=== PATIENT | female | born 1965 | race Caucasian/White ===

== ENCOUNTER 2020-03-21 08:13 | Outpatient (CLI) | payer MEDICAID ==
[2020-03-21] MEDS ORDERED: IOVERSOL 320 50 ML VIAL ONE (08:25)
[2020-03-21] MEDS ORDERED: IOVERSOL 320 100 ML VIAL IVP ONE ×2 (08:25→10:11)
[2020-03-21] MEDS ORDERED: IOVERSOL 320 50 ML VIAL PO ONE (10:11)
--- NOTE | 2020-03-21 10:45 | CT Report ---
PROCEDURE: Abdomen/Pelvis W INDICATIONS: ABD PAIN CONTRAST: IV CONTRAST: Optiray 320 ml: 100 PO CONTRAST: *NO PO CONTRAST TECHNIQUE: After the administration of IV and oral contrast, 5 mm thick sections acquired from the diaphragms to the symphysis. 5 mm thick coronal and sagittal reformats were acquired. For radiation dose reducti on, the following was used: automated exposure control, adjustment of mA and/or kV according to richi ent size. COMPARISON: None. FINDINGS: Image quality: Excellent. ABDOMEN: Lung bases: Lung bases are clear. Heart size is normal. Solid organs: Mild hepatomegaly and mild steatosis. Spleen is normal in size and enhancement. Gallbl adder is unremarkable Biliary system is non dilated. Pancreas enhances normally. No adrenal nodule s. Kidneys demonstrate normal size and enhancement, without hydronephrosis. Small cyst arising from the lower pole of the left kidney Peritoneum and bowel: Bowel loops demonstrate normal wall thickness and caliber. Normal appendix. N o free fluid or air. Nodes and vessels: No retroperitoneal or mesenteric adenopathy by size criteria. Aorta and inferior vena cava are normal in size. Miscellaneous: No ventral hernias. PELVIS: Genitourinary: Bladder wall thickness is normal. The uterus is normal. No suspicious adnexal masses . Miscellaneous: No inguinal hernias or adenopathy. Bones: No suspicious bony lesions. Pars defects at L5 result in disc height loss and grade 1-2 ante rolisthesis. No vertebral body compression fractures. IMPRESSION: 1. No evidence of ventral or inguinal hernia. 2. Mild hepatomegaly and steatosis. 3. L5 pars defects and resultant spondylolisthesis. Reviewed by: Leeanne Arce MD on 03/21/2020 10:43 AM PST Approved by: Leeanne Arce MD on 03/21/2020 10:43 AM PST Station ID: [id number]
== END 2020-03-21 08:14 | disposition home or self-care (01) ==
LOC: DI 08:13
PROVIDERS: ATTEND Family Medicine
DX: R10.9 Unspecified abdominal pain (principal); K76.0 Fatty (change of) liver, not elsewhere classified; M43.16 Spondylolisthesis, lumbar region; N64.4 Mastodynia
CPT/HCPCS: 74177; Q9967

== ENCOUNTER 2020-04-07 08:30 | Outpatient (CLI) | payer MEDICAID ==
--- NOTE | 2020-04-08 09:53 | Mammography Report ---
BILATERAL DIGITAL DIAGNOSTIC MAMMOGRAM 3D/2D: 04/07/2020 CLINICAL: Intermitten pain in bilateral breasts. No prior exams were available for comparison. There are scattered fibroglandular elements in both br easts. No significant masses, calcifications, or other findings are seen in either breast. IMPRESSION: NEGATIVE There is no abnormality seen in either breast to correspond with the diffuse pain in the outer aspect , however, clinical correlation is recommended. There is no mammographic evidence of malignancy. A 1 year screening mammogram is recommended. This exam was interpreted at Station ID: [id number]. NOTE: For mammograms, a report in lay terms will be sent to the patient. Approximately 15% of breast malignancies will not be visualized mammographically. In the management of a palpable breast mass, a negative mammogram must not discourage biopsy of a clinically suspicious lesion. Electronically Signed By: Mateo acharya/chika:04/07/2020 09:13:20 ACR BI-RADS Category 1: Negative 3341F PARENCHYMAL PATTERN: (A) - The breast(s) demonstrate(s) scattered fibroglandular densities. BI-RADS CATEGORY: (1) - 1 RECOMMENDATION: (ANNUAL) - Recommend routine annual screening mammography. [id number] 1 year screening LATERALITY: (B)
== END 2020-04-07 08:31 | disposition home or self-care (01) ==
LOC: DI 08:30
PROVIDERS: ATTEND Family Medicine
DX: N64.4 Mastodynia (principal); Z80.3 Family history of malignant neoplasm of breast

== ENCOUNTER 2020-04-20 11:57 | Outpatient (CLI) | payer MEDICAID ==
--- NOTE | 2020-04-20 14:05 | XRAY Report ---
PROCEDURE: Pelvis 1 View INDICATIONS: HIP PAIN,RIGHT TECHNIQUE: 1 view(s) of the pelvis acquired. COMPARISON: None. FINDINGS: Bones: No fractures or dislocations. No suspicious bony lesions. Mild periarticular osteophyte for mation at the bilateral hip joints. Soft tissues: Visualized bowel gas pattern is normal. No suspicious soft tissue calcifications. IMPRESSION: Mild hip osteoarthritis bilaterally. No acute fracture. No osseous lesion. If symptoms a nd/or clinical suspicion for pathology continue, further assessment with repeat plain films, or advan magy imaging (e.g., CT, MRI, or bone scan) is recommended for further assessment. Reviewed by: Benton Alamo MD on 04/20/2020 2:03 PM PST Approved by: Benton Alamo MD on 04/20/2020 2:03 PM PST Station ID: [id number]
== END 2020-04-20 11:58 | disposition home or self-care (01) ==
LOC: DI 11:57
PROVIDERS: ATTEND Family Medicine
DX: M16.0 Bilateral primary osteoarthritis of hip (principal)

== ENCOUNTER 2020-05-03 08:56 | Outpatient (CLI) | payer MEDICAID ==
[2020-05-03] MEDS ORDERED: SINCALIDE 5 MCG VIAL ONE (10:20)
[2020-05-03] MEDS ORDERED: SINCALIDE 1.48 MCG in SODIUM CHLORIDE 0.9% 50 ML IV ONE (13:34)
--- NOTE | 2020-05-03 13:39 | Nuclear Medicine Report ---
PROCEDURE: Hepatobiliary HIDA w/ Rx INDICATIONS: ABD PAIN, RUQ RADIOPHARMACEUTICAL: 5.3 mCi Tc-99m meprofenin i.v. and 1.48 ?g sincalide i.v. TECHNIQUE: Following intravenous administration of Tc-99m meprofenin, sequential anterior abdominal images were obtained through 30 minutes. To evaluate the contractile response of the gallbladder in response to Cholecystokinin (CCK), 1.48 microgram sincalide (0.02 ?g/kg) was administered by slow int ravenous infusion approximately 30 minutes after the administration of the radiopharmaceutical. Sequ ential imaging was continued for 30 minutes after the start of CCK infusion. Gallbladder ejection fr action was calculated. COMPARISON: CT abdomen and pelvis with contrast, 03/21/2020.. FINDINGS: Biliary scan: There is normal tracer uptake and excretion by the liver. There is normal visualizati on of the intrahepatic ducts, common bile duct, and gallbladder. There is normal tracer transit into the duodenum. CCK stimulation: There is poor contractile response of the gallbladder to CCK infusion. The calcula luis daniel gallbladder ejection fraction is 14%; normal values are above 35%. IMPRESSION: 1. Normal filling of gallbladder. No scintigraphic findings to suggest acute cholecystitis. 2. Poor contractile response of gallbladder to CCK infusion. This finding is consistent with gallblad margarito dyskinesia. Reviewed by: Santo Birmingham MD on 05/03/2020 1:37 PM PST Approved by: Santo Birmingham MD on 05/03/2020 1:37 PM PST Station ID: [id number]
== END 2020-05-03 08:57 | disposition home or self-care (01) ==
LOC: DI 08:56
PROVIDERS: ATTEND Family Medicine
DX: R10.11 Right upper quadrant pain (principal)
CPT/HCPCS: 78227; J7040

== ENCOUNTER 2020-05-22 08:41 | Outpatient (CLI) | payer MEDICAID ==
--- NOTE | 2020-05-22 10:26 | Ultrasound Report ---
PROCEDURE: Abdomen Limited INDICATIONS: ABDOMINAL PAIN TECHNIQUE: Real-time focused scanning was performed of the abdomen, with image documentation. COMPARISON: CT abdomen and pelvis dated 03/21/2020 FINDINGS: Increased echogenicity of the liver is consistent with hepatic steatosis. Gallbladder is unremarkable. No stones or wall thickening. No pain on examination. No dilated ducts. Common hepatic duct is 4 mm. Common bile duct is 5 mm. Visualized portions of the pancreas are unremarkable. Normal size right kidney with no evidence of hydronephrosis. IMPRESSION: 1. Hepatic steatosis. 2. Otherwise unremarkable right upper quadrant ultrasound with no evidence of gallstone disease. Reviewed by: Kike Resendiz MD on 05/22/2020 9:25 AM [place] Approved by: Kike Resendiz MD on 05/22/2020 9:25 AM [place] Station ID: [id number]
== END 2020-05-22 08:42 | disposition home or self-care (01) ==
LOC: DI 08:41
PROVIDERS: ATTEND Surgery
DX: K76.0 Fatty (change of) liver, not elsewhere classified (principal)

== ENCOUNTER 2020-05-28 16:32 | Outpatient (CLI) | payer MEDICAID | END 2020-05-28 16:33 | disposition critical access hospital (66) | LOC: EMS 16:32 | PROVIDERS: ATTEND Emergency Medicine | DX: I10 Essential (primary) hypertension (principal); R07.9 Chest pain, unspecified | CPT/HCPCS: A0425; A0429; A0999 ==

== ENCOUNTER 2020-05-28 16:51 | Emergency (ER) | payer MEDICAID ==
[2020-05-28 17:09] LABS: BASOPHILS % (AUTO) 0.5 %; EOSINOPHILS % (AUTO) 0.2 %; HCT - HEMATOCRIT 39.5 % (37.0-47.0); HGB - HEMOGLOBIN 13.4 g/dL (12.0-16.0); LYMPHOCYTES # (AUTO) 1.1 10^3/uL (1.5-3.5); LYMPHOCYTES % (AUTO) 20.4 %; MEAN CORPUSCULAR HEMOGLOBIN 31.7 pg (27.0-31.0); MEAN CORPUSCULAR HGB CONC 33.9 g/dL (32.0-36.0); MEAN CORPUSCULAR VOLUME 93.4 fL (81.0-99.0); MEAN PLATELET VOLUME 9.6 fL (7.9-10.8); MONOCYTES # (AUTO) 0.2 10^3/uL (0.0-1.0); MONOCYTES % (AUTO) 3.2 %; NEUTROPHILS # (AUTO) 4.2 10^3/uL (1.5-6.6); NEUTROPHILS % (AUTO) 75.5 %; PLT - PLATELET COUNT 213 10^3/uL (130-450); RED BLOOD COUNT 4.23 10^6/uL (4.20-5.40); RED CELL DISTRIBUTION WIDTH 12.6 % (12.0-15.0); WHITE BLOOD COUNT 5.6 x10^3/uL (4.8-10.8)
--- NOTE | 2020-05-28 17:22 | ED Physician Documentation ---
History of Present Illness - Stated complaint Stated Complaint: CP - Chief complaint Chief Complaint: Cardiac - History obtained from History obtained from: Patient - History of Present Illness Timing: Today Pain level max: 0 Pain level now: 0 - Additonal information Additional information: Patient is a 55-year-old female who presents to the emergency department after being seen at the walk-in clinic earlier today. They called 911 and brought her here. She states she drank coffee today, normally drinks decaf, but this was regular coffee. Developed palpitations after this. She states that her blood pressure was higher than usual at 160 systolic. She went to the walk-in clinic and states that she was told her blood pressure was 190. They called the ambulance and brought her here. Patient denies any chest pain, difficulty breathing, nausea, vomiting, headache, visual changes. Patient is currently asymptomatic. Nothing made it better or worse Review of Systems Ten Systems: 10 systems reviewed and negative Constitutional: denies: Fever, Chills Ears: denies: Ear pain Nose: denies: Rhinorrhea / runny nose, Congestion Respiratory: denies: Cough, Wheezing GI: denies: Nausea, Vomiting, Diarrhea Skin: denies: Rash Musculoskeletal: denies: Neck pain, Back pain Neurologic: denies: Headache PD PAST MEDICAL HISTORY - Past Medical History Past Medical History: No - Present Medications Home Medications: Ambulatory Orders Medication Instructions Recorded Confirmed No Known Home Medications 05/28/20 05/28/20 - Allergies Allergies/Adverse Reactions: Allergies Allergy/AdvReac Type Severity Reaction Status Date / Time nitrofurantoin Allergy Headache Verified 05/28/20 16:56 [From Macrobid] - Social History Does the pt smoke?: No Smoking Status: Never smoker Does the pt drink ETOH?: No PD ED PE NORMAL - Vitals Vital signs reviewed: Yes - General General: Alert and oriented X 3, No acute distress - HEENT HEENT: Moist mucous membranes - Neck Neck: Supple, no meningeal sign - Cardiac Cardiac: RRR - Respiratory Respiratory: No respiratory distress, Clear bilaterally - Abdomen Abdomen: Soft, Non tender, Non distended - Derm Derm: Warm and dry, No rash - Extremities Extremities: No edema, No calf tenderness / cord - Neuro Neuro: Alert and oriented X 3 - Psych Psych: Normal mood, Normal affect Results - Vitals Vitals: Vital Signs - 24 hr 05/28/20 05/28/20 16:56 17:57 Temperature 36.4 C L Heart Rate 87 72 Respiratory 19 18 Rate Blood Pressure 158/70 H 132/89 H O2 Saturation 97 99 Oxygen O2 Source Room air - EKG (time done) 1654 Rate: Rate (enter#) (83) Rhythm: NSR [place]: Normal Intervals: Normal [place] QRS: Normal Ischemia: Normal ST segments - Labs Labs: Laboratory Tests 05/28/20 05/28/20 05/28/20 17:03 17:03 17:03 WBC 5.6 RBC 4.23 Hgb 13.4 Hct 39.5 MCV 93.4 MCH 31.7 H MCHC 33.9 RDW 12.6 Plt Count 213 MPV 9.6 Neut # (Auto) 4.2 Lymph # (Auto) 1.1 L [place] # (Auto) 0.2 Eos # (Auto) 0.0 Baso # (Auto) 0.0 Absolute Nucleated RBC 0.00 Nucleated RBC % 0.0 Sodium 141 Potassium 3.5 Chloride 99 L Carbon Dioxide 25 Anion Gap 17.0 H BUN 15 Creatinine 0.8 Estimated GFR (MDRD) 74 L Glucose 105 H Calcium 10.2 Total Bilirubin 1.3 H AST 22 ALT 20 Alkaline Phosphatase 55 Troponin I High Sens 9.9 Total Protein 7.6 Albumin 4.5 Globulin 3.1 Albumin/Globulin Ratio 1.5 Lipase 22 - Rads (name of study) cxr Radiology: Prelim report reviewed, EMP read contemporaneously, See rad report (No acute cardiopulmonary abnormality. ) PD MEDICAL DECISION MAKING - ED course Complexity details: reviewed results, re-evaluated patient, considered differential, d/w patient ED course: 55-year-old female with palpitations today. No acute findings on EKG, chest x- ray or laboratory testing. No findings on telemetry. Likely related to her caffeine intake. Patient is well-appearing, nontoxic. Afebrile. No evidence of hypertensive endorgan damage. Patient counseled regarding signs and symptoms for which I believe and urgent re-evaluation would be necessary. Patient with good understanding of and agreement to plan and is comfortable going home at this time This document was made in part using voice recognition software. While efforts are made to proofread this document, sound alike and grammatical errors may occur. Departure - Departure Disposition: Home, Self Care Clinical Impression: Palpitations Hypertension Qualifiers: Hypertension type: unspecified Qualified Code(s): I10 - Essential (primary) hypertension Condition: Good Instructions: ED Hypertension Poss, ED Palpitations Follow-Up: Edin Mcmillan DO [Primary Care Provider] - Within 1 week Comments: Follow-up with your doctor for further care. Your testing does not show any acute abnormalities tonight. Continue your current medications at home. Please avoid caffeine in the future as this appears to cause palpitations when you drink caffeine. Discharge Date/Time: 05/28/20 17:57
[2020-05-28 17:27] LABS: ALBUMIN 4.5 g/dL (3.2-5.5); ALBUMIN/GLOBULIN RATIO 1.5 (1.0-2.2); BILIRUBIN,TOTAL 1.3 mg/dL (0.2-1.0); CALCIUM 10.2 mg/dL (8.5-10.3); CREATININE 0.8 mg/dL (0.4-1.0); POTASSIUM 3.5 mmol/L (3.5-5.0); TOTAL PROTEIN 7.6 g/dL (6.7-8.2)
--- NOTE | 2020-05-28 17:35 | XRAY Report ---
PROCEDURE: Chest 1 View X-Ray INDICATIONS: Chest Pain TECHNIQUE: One view of the chest was acquired. COMPARISON: CT abdomen and pelvis 03/21/2020. FINDINGS: Surgical changes and devices: None. Lungs and pleura: No pleural effusions or pneumothorax. Lungs are clear. Mediastinum: Mediastinal contours appear normal. Heart size is normal. Bones and chest wall: No suspicious bony lesions. Overlying soft tissues appear unremarkable. IMPRESSION: No acute cardiopulmonary abnormality. Reviewed by: Morteza Ochoa MD on 05/28/2020 4:34 PM [place] Approved by: Morteza Ochoa MD on 05/28/2020 4:34 PM [place] Station ID: [id number]
[2020-05-28 17:59] VITALS: BP 132/89
== END 2020-05-28 17:57 | disposition home or self-care (01) ==
LOC: EDUNIT# → ED 16:51 → SUPCPDRO 16:51 → ED 17:57
DX: R00.2 Palpitations (principal); I10 Essential (primary) hypertension
CPT/HCPCS: 36415; 80053; 83690; 84484; 85025; 93005; 99284

== ENCOUNTER 2020-06-10 09:08 | Outpatient (CLI) | payer SELFPAY ==
--- OUTSIDE RECORDS SUMMARY | 2020-06-15 01:38 | EXTERNAL MEDICAL SUMMARY RPT | Continuity of Care Document ---
:1965 Demographics Phone Unavailable Preferred Language Unknown Marital Status Unknown Roman Catholic Affiliation Unknown Race Unknown Ethnic Group Unknown Author Organization [facility] Address [address] [place] [address] Phone Social History date description facility [phone]
== END 2020-06-10 09:09 | disposition home or self-care (01) ==
LOC: LAB 09:08
PROVIDERS: ATTEND Physician Assistant Medical
DX: Z13.6 Encounter for screening for cardiovascular disorders (principal); Z79.899 Other long term (current) drug therapy; Z80.9 Family history of malignant neoplasm, unspecified; E55.9 Vitamin D deficiency, unspecified
CPT/HCPCS: 36415; 80053; 80061; 82306; 83690; 83721; 85025

== ENCOUNTER 2020-09-01 08:00 | Outpatient (CLI) | payer MEDICAID ==
[2020-09-01 11:29] LABS: BASOPHILS % (AUTO) 0.5 %; EOSINOPHILS % (AUTO) 0.7 %; HCT - HEMATOCRIT 39.3 % (37.0-47.0); LYMPHOCYTES # (AUTO) 1.4 10^3/uL (1.5-3.5); LYMPHOCYTES % (AUTO) 24.8 %; MEAN CORPUSCULAR HEMOGLOBIN 31.2 pg (27.0-31.0); MEAN CORPUSCULAR HGB CONC 33.1 g/dL (32.0-36.0); MEAN CORPUSCULAR VOLUME 94.2 fL (81.0-99.0); MEAN PLATELET VOLUME 10.2 fL (7.9-10.8); MONOCYTES # (AUTO) 0.2 10^3/uL (0.0-1.0); NEUTROPHILS % (AUTO) 69.8 %; PLT - PLATELET COUNT 224 10^3/uL (130-450); RED BLOOD COUNT 4.17 10^6/uL (4.20-5.40); RED CELL DISTRIBUTION WIDTH 12.9 % (12.0-15.0); WHITE BLOOD COUNT 5.8 x10^3/uL (4.8-10.8)
[2020-09-01 11:38] LABS: ALBUMIN 4.5 g/dL (3.2-5.5); ALBUMIN/GLOBULIN RATIO 1.6 (1.0-2.2); ALKALINE PHOSPHATASE 49 IU/L (42-121); ALT ALANINE AMINOTRANSFERASE 15 IU/L (10-60); AST ASPARTATE AMINOTRANSFERASE 17 IU/L (10-42); BUN - BLOOD UREA NITROGEN 16 mg/dL (6-20); CALCIUM 9.5 mg/dL (8.5-10.3); CARBON DIOXIDE - CO2 28 mmol/L (21-32); CHLORIDE 103 mmol/L (101-111); CHOL/HDL RATIO 5.1 (<4.4); CHOLESTEROL 253 mg/dL; CREATININE 0.6 mg/dL (0.4-1.0); GFR - MDRD 104 (>89); GLUCOSE 104 mg/dL (70-100); HDL CHOLESTEROL 50 mg/dL; LDL CHOLESTEROL,CALCULATED 180 mg/dL; LDL/HDL RATIO 3.6 (<4.4); POTASSIUM 3.8 mmol/L (3.5-5.0); SODIUM 140 mmol/L (135-145); TOTAL PROTEIN 7.3 g/dL (6.7-8.2); TRIGLYCERIDES 115 mg/dL; VLDL CHOLESTEROL 23 mg/dL
[2020-09-01 11:49] LABS: THYROID STIMULATING HORMONE 2.32 uIU/mL (0.34-5.60)
== END 2020-09-01 23:59 | disposition home or self-care (01) ==
LOC: LAB.N 08:00
PROVIDERS: ATTEND Family Medicine
DX: R03.0 Elevated blood-pressure reading, without diagnosis of hypertension (principal)
CPT/HCPCS: 36415; 80053; 80061; 83721; 84443; 85025

== ENCOUNTER 2020-12-12 09:36 | Outpatient (CLI) | payer MEDICAID ==
[2020-12-12 10:07] LABS: ALBUMIN 4.5 g/dL (3.2-5.5); BILIRUBIN,DIRECT 0.1 mg/dL (0.1-0.5); BILIRUBIN,TOTAL 1.4 mg/dL (0.2-1.0); TOTAL PROTEIN 7.2 g/dL (6.7-8.2)
== END 2020-12-12 09:37 | disposition home or self-care (01) ==
LOC: LAB 09:36
PROVIDERS: ATTEND Internal Medicine Gastroenterology
DX: K76.0 Fatty (change of) liver, not elsewhere classified (principal)
CPT/HCPCS: 36415; 80076

== ENCOUNTER 2021-01-23 08:00 | Outpatient (CLI) | payer MEDICAID ==
[2021-01-23 13:14] LABS: THYROID STIMULATING HORMONE 2.86 uIU/mL (0.34-5.60)
[2021-01-23 13:20] LABS: FERRITIN 72.4 ng/mL (11.0-306.8)
== END 2021-01-23 23:59 | disposition home or self-care (01) ==
LOC: LAB.WCP 08:00
PROVIDERS: ATTEND Family Medicine
DX: L65.9 Nonscarring hair loss, unspecified (principal)
CPT/HCPCS: 36415; 82728; 84443

== ENCOUNTER 2021-02-05 16:29 | Outpatient (CLI) | payer OTHER, MEDICAID | END 2021-02-05 16:30 | disposition EMS.NT | LOC: EMS 16:29 | DX: Z04.1 Encounter for examination and observation following transport accident (principal); R51.9 Headache, unspecified ==

== ENCOUNTER 2021-02-05 18:36 | Emergency (ER) | payer OTHER, MEDICAID ==
[2021-02-05 18:49] VITALS: BP 144/85
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
[2021-02-05] MEDS: IBUPROFEN 600 MG TABLET PO STA (19:40)
--- NOTE | 2021-02-05 19:42 | CT Report ---
PROCEDURE: HEAD WO INDICATIONS: head injury TECHNIQUE: Noncontrast 4.5 mm thick angled axial sections acquired from the foramen magnum to the vertex. For r adiation dose reduction, the following was used: automated exposure control, adjustment of mA and/or kV according to patient size. COMPARISON: None. FINDINGS: Image quality: Excellent. CSF spaces: Basal cisterns are patent. No extra-axial fluid collections. Ventricles are normal in size and shape. Brain: No midline shift. No intracranial masses or hemorrhage. Covarrubias-white matter interface is norm al. Skull and face: Calvarium and visualized facial bones are intact, without suspicious lesions. Chron ic calcification adjacent to the posterior falx Sinuses: Visualized sinuses and mastoids are clear. IMPRESSION: No acute intracranial process. Reviewed by: Anjum Jones MD on 02/05/2021 7:41 PM PST Approved by: Anjum Jones MD on 02/05/2021 7:41 PM PST Station ID: [id number]
== END 2021-02-05 19:49 | disposition home or self-care (01) ==
LOC: ED 18:36
DX: S09.90XA Unspecified injury of head, initial encounter (principal); V43.52XA Car driver injured in collision with other type car in traffic accident, initial encounter; Y93.89 Activity, other specified; Y92.411 Interstate highway as the place of occurrence of the external cause
CPT/HCPCS: 70450; 99282; 99284; A9270

== ENCOUNTER 2021-03-31 08:00 | Outpatient (CLI) | payer MEDICAID ==
[2021-03-31 17:52] LABS: BASOPHILS % (AUTO) 0.4 %; EOSINOPHILS % (AUTO) 0.7 %; HCT - HEMATOCRIT 40.3 % (37.0-47.0); HGB - HEMOGLOBIN 13.1 g/dL (12.0-16.0); LYMPHOCYTES # (AUTO) 1.6 10^3/uL (1.5-3.5); LYMPHOCYTES % (AUTO) 35.5 %; MEAN CORPUSCULAR HGB CONC 32.5 g/dL (32.0-36.0); MEAN CORPUSCULAR VOLUME 95.5 fL (81.0-99.0); MEAN PLATELET VOLUME 10.2 fL (7.9-10.8); MONOCYTES # (AUTO) 0.2 10^3/uL (0.0-1.0); MONOCYTES % (AUTO) 4.5 %; NEUTROPHILS # (AUTO) 2.6 10^3/uL (1.5-6.6); NEUTROPHILS % (AUTO) 58.7 %; PLT - PLATELET COUNT 226 10^3/uL (130-450); RED BLOOD COUNT 4.22 10^6/uL (4.20-5.40); RED CELL DISTRIBUTION WIDTH 12.8 % (12.0-15.0); WHITE BLOOD COUNT 4.5 x10^3/uL (4.8-10.8)
[2021-03-31 18:02] LABS: ALBUMIN 4.1 g/dL (3.2-5.5); ALBUMIN/GLOBULIN RATIO 1.4 (1.0-2.2); BILIRUBIN,TOTAL 1.3 mg/dL (0.2-1.0); CALCIUM 9.4 mg/dL (8.5-10.3); CREATININE 0.6 mg/dL (0.4-1.0); POTASSIUM 4.2 mmol/L (3.5-5.0); TOTAL PROTEIN 7.1 g/dL (6.7-8.2)
== END 2021-03-31 23:59 ==
LOC: LAB.N 08:00
PROVIDERS: ATTEND Physician Assistant
DX: R10.9 Unspecified abdominal pain (principal)
CPT/HCPCS: 36415; 80053; 83690; 85025

== ENCOUNTER 2021-04-03 08:00 | Outpatient (CLI) | payer MEDICAID | END 2021-04-03 23:59 | LOC: LAB 08:00 | PROVIDERS: ATTEND Family Medicine | DX: R30.0 Dysuria (principal) | CPT/HCPCS: 87086 ==

== ENCOUNTER 2021-04-10 09:17 | Outpatient (CLI) | payer MEDICAID ==
--- NOTE | 2021-04-11 08:45 | Mammography Report ---
BILATERAL DIGITAL SCREENING MAMMOGRAM 3D/2D: 04/10/2021 CLINICAL: Family history of breast cancer. Routine screening. Comparison is made to exam dated: 04/07/2020 mammogram - [facility]. There are sca ttered fibroglandular elements in both breasts. No significant masses, calcifications, or other findings are seen in either breast. There has been no significant interval change. IMPRESSION: NEGATIVE There is no mammographic evidence of malignancy. A 1 year screening mammogram is recommended. This exam was interpreted at Station ID: [id number]. NOTE: For mammograms, a report in lay terms will be sent to the patient. Approximately 15% of breast malignancies will not be visualized mammographically. In the management of a palpable breast mass, a negative mammogram must not discourage biopsy of a clinically suspicious lesion. Electronically Signed By: Mateo acharya/chika:04/10/2021 13:57:07 ACR BI-RADS Category 1: Negative 3341F PARENCHYMAL PATTERN: (A) - The breast(s) demonstrate(s) scattered fibroglandular densities. BI-RADS CATEGORY: (1) - 1 RECOMMENDATION: (ANNUAL) - Recommend routine annual screening mammography. [id number] 1 year screening LATERALITY: (B)
== END 2021-04-10 09:18 | disposition home or self-care (01) ==
LOC: DI.N 09:17
DX: Z12.31 Encounter for screening mammogram for malignant neoplasm of breast (principal); Z80.3 Family history of malignant neoplasm of breast

== ENCOUNTER 2021-04-19 16:47 | Outpatient (CLI) | payer MEDICAID | END 2021-04-19 16:48 | disposition critical access hospital (66) | LOC: EMS 16:47 | DX: R07.89 Other chest pain (principal); M79.602 Pain in left arm | CPT/HCPCS: A0425; A0429; A0999 ==

== ENCOUNTER 2021-04-19 17:10 | Emergency (ER) | payer MEDICAID ==
--- NOTE | 2021-04-19 18:00 | ED Physician Documentation ---
History of Present Illness - Stated complaint Stated Complaint: CHEST PX - Chief complaint Chief Complaint: Cardiac - Additonal information Additional information: 56-year-old female presents emergency department for evaluation of left-sided chest pain with radiation to her arm. She reports that she woke up this morning with chest pain and felt like her arm was numb and tingling. She tried to move throughout the day but found that the symptoms persisted thus she went to a local primary care office where she was advised to come to the ER. Patient has no history of hypertension until recently after a head injury. She was prescribed losartan by her primary care provider but due to insurance issues has not been able to have it filled. Non-smoker. She did enter menopause early at 32 years of age. Denies any history of diabetes. At the time of evaluation here in the ER she is free of chest pain and has no arm pain. Review of Systems Constitutional: denies: Fever, Chills Eyes: reports: Reviewed and negative Nose: reports: Reviewed and negative Throat: reports: Reviewed and negative Cardiac: reports: Chest pain / pressure. denies: Palpitations, Pedal edema, Calf pain Respiratory: reports: Reviewed and negative GI: reports: Reviewed and negative : reports: Reviewed and negative Skin: reports: Reviewed and negative PD PAST MEDICAL HISTORY - Present Medications Home Medications: Ambulatory Orders Medication Instructions Recorded Confirmed No Known Home Medications 05/28/20 05/28/20 - Allergies Allergies/Adverse Reactions: Allergies Allergy/AdvReac Type Severity Reaction Status Date / Time latex Allergy Unknown Verified 04/19/21 17:21 nitrofurantoin Allergy Headache Verified 04/19/21 17:21 [From Macrobid] - Social History Does the pt smoke?: No Smoking Status: Never smoker Does the pt drink ETOH?: No PD ED PE NORMAL - General General: Alert and oriented X 3, No acute distress, Well developed/nourished - HEENT HEENT: PERRL, Moist mucous membranes - Neck Neck: Supple, no meningeal sign, No adenopathy - Cardiac Cardiac: RRR, No murmur - Respiratory Respiratory: No respiratory distress, Clear bilaterally - Abdomen Abdomen: Normal bowel sounds, Soft, Non tender - Back Back: No CVA TTP, No spinal TTP - Derm Derm: Normal color, Warm and dry, No rash - Extremities Extremities: No deformity, No tenderness to palpate, Normal ROM s pain - Neuro Neuro: staff genetic counselor 2-12 intact Eye Opening: Spontaneous Motor: Obeys Commands Verbal: Oriented GCS Score: 15 - Psych Psych: Normal mood Results - Vitals Vitals: Vital Signs - 24 hr 04/19/21 04/19/21 04/19/21 17:17 17:30 18:58 Temperature 36.0 C L Heart Rate 63 66 64 Respiratory 16 18 15 Rate Blood Pressure 155/97 H 156/84 H 145/92 H O2 Saturation 100 100 100 Oxygen O2 Source Room air - EKG (time done) 1722 Rate: Rate (enter#) (59) Rhythm: NSR [place]: Anterior hemiblock Intervals: Normal [place], Prolonged QT, RBBB QRS: Normal Ischemia: Normal ST segments Compare to prior EKG: Old EKG unavailable Computer interpretation: Agree with computer - Labs Labs: Laboratory Tests 04/19/21 04/19/21 04/19/21 18:05 18:05 18:05 WBC 7.0 RBC 4.09 L Hgb 12.9 Hct 37.8 MCV 92.4 MCH 31.5 H MCHC 34.1 RDW 12.4 Plt Count 228 MPV 9.5 Neut # (Auto) 5.1 Lymph # (Auto) 1.6 [place] # (Auto) 0.2 Eos # (Auto) 0.0 Baso # (Auto) 0.0 Absolute Nucleated RBC 0.00 Nucleated RBC % 0.0 Sodium 137 Potassium 3.8 Chloride 99 L Carbon Dioxide 28 Anion Gap 10.0 BUN 15 Creatinine 0.7 Estimated GFR (MDRD) 87 L Glucose 99 Calcium 9.6 Total Bilirubin 1.2 H AST 16 ALT 15 Alkaline Phosphatase 43 Troponin I High Sens 6.2 Total Protein 6.8 Albumin 4.1 Globulin 2.7 Albumin/Globulin Ratio 1.5 Lipase 27 - Rads (name of study) CXR Radiology: Final report received (No acute cardiopulmonary process) PD MEDICAL DECISION MAKING - ED course Complexity details: reviewed results, re-evaluated patient, considered d ifferential, d/w patient ED course: 56-year-old female presents to the emergency department for evaluation of chest pain that she noticed this morning when she woke up. She did have some radiation to her left side. She reports she has no history of hypertension but after recent concussion was noted to be hypertensive. Her doctor has ordered losartan which she has not started. On presentation to the ER the patient is free of chest pain. Her EKG shows a partial right bundle branch block unchanged from previous. Screening chest x- ray and labs are otherwise negative. High-sensitivity troponin is negative. Patient is advised to have close follow-up with her primary care provider. Would benefit from an outpatient stress test and echocardiogram. Emergent retur n precautions were discussed for failure of symptoms to improve. Departure - Departure Disposition: Home, Self Care Clinical Impression: Chest pain Qualifiers: Chest pain type: unspecified Qualified Code(s): R07.9 - Chest pain, unspecified Condition: Stable Record reviewed to determine appropriate education?: Yes Instructions: ED Heart Disease Risk Factors Follow-Up: RAUL WINSTON MD [Primary Care Provider] - Comments: You were seen today in the ED for chest pain. Your labs and CXR are normal. Your EKG showed no changes from the one completed in May 2020. Because of your age and early menopause, you would benefit from outpatient stress test and echocardiogram. It is important that you follow up with Your primary as soon as possible regarding this If you have fainting, any chest pain that worsens with walking, severe shortness of air, you should return to the ED
--- NOTE | 2021-04-19 18:05 | XRAY Report ---
PROCEDURE: Chest 1 View X-Ray INDICATIONS: Chest Pain TECHNIQUE: One view of the chest was acquired. COMPARISON: 05/28/2020 FINDINGS: Surgical changes and devices: None. Lungs and pleura: No pleural effusions or pneumothorax. Lungs are clear. Mediastinum: Mediastinal contours appear normal. Heart size is normal. Bones and chest wall: No suspicious bony lesions. Overlying soft tissues appear unremarkable. IMPRESSION: No acute cardiopulmonary findings Reviewed by: Alphonse Adame MD on 04/19/2021 5:03 PM [facility] Approved by: Alphonse Adame MD on 04/19/2021 5:03 PM [place] Station ID: [id number]
[2021-04-19 18:19] LABS: BASOPHILS % (AUTO) 0.3 %; EOSINOPHILS % (AUTO) 0.4 %; HCT - HEMATOCRIT 37.8 % (37.0-47.0); HGB - HEMOGLOBIN 12.9 g/dL (12.0-16.0); LYMPHOCYTES # (AUTO) 1.6 10^3/uL (1.5-3.5); MEAN CORPUSCULAR HEMOGLOBIN 31.5 pg (27.0-31.0); MEAN CORPUSCULAR HGB CONC 34.1 g/dL (32.0-36.0); MEAN CORPUSCULAR VOLUME 92.4 fL (81.0-99.0); MEAN PLATELET VOLUME 9.5 fL (7.9-10.8); MONOCYTES # (AUTO) 0.2 10^3/uL (0.0-1.0); NEUTROPHILS # (AUTO) 5.1 10^3/uL (1.5-6.6); NEUTROPHILS % (AUTO) 73.2 %; PLT - PLATELET COUNT 228 10^3/uL (130-450); RED BLOOD COUNT 4.09 10^6/uL (4.20-5.40); RED CELL DISTRIBUTION WIDTH 12.4 % (12.0-15.0)
[2021-04-19 18:28] LABS: ALBUMIN 4.1 g/dL (3.2-5.5); ALBUMIN/GLOBULIN RATIO 1.5 (1.0-2.2); BILIRUBIN,TOTAL 1.2 mg/dL (0.2-1.0); CALCIUM 9.6 mg/dL (8.5-10.3); CREATININE 0.7 mg/dL (0.4-1.0); POTASSIUM 3.8 mmol/L (3.5-5.0); TOTAL PROTEIN 6.8 g/dL (6.7-8.2)
[2021-04-19 19:31] VITALS: BP 143/86
== END 2021-04-19 19:47 | disposition home or self-care (01) ==
LOC: EDUNIT# → ED 17:10
DX: R07.9 Chest pain, unspecified (principal)
CPT/HCPCS: 36415; 80053; 83690; 84484; 85025; 93005; 99284

== ENCOUNTER 2021-05-03 14:36 | Outpatient (CLI) | payer MEDICAID ==
[2021-05-03] MEDS ORDERED: GADOBUTROL 7.5 MMOL/7.5 ML VIAL ONE (15:19)
[2021-05-03] MEDS ORDERED: GADOBUTROL 7.5 MMOL/7.5 ML VIAL IVP ONE (16:08)
--- NOTE | 2021-05-03 16:11 | MRI Report ---
PROCEDURE: Brain W/WO INDICATIONS: Migraine headache CONTRAST: 6.4 mL Gadavist TECHNIQUE: Noncontrast axial T1 spin echo, axial T2 fast spin echo, sagittal and axial FLAIR, coronal T2 fast sp in echo, axial gradient echo, axial diffusion and ADC through the brain. After the administration of contrast, axial and coronal T1 spin echo with fat saturation through the brain. COMPARISON: None. FINDINGS: Image quality: Excellent. CSF spaces: Basal cisterns are patent. No extra-axial fluid collections. Ventricles are normal in size and shape. Brain: No midline shift. No intracranial bleeds or masses. No abnormal intracranial enhancement. There is cerebral volume loss for age. There is periventricular white matter chronic small vessel is chemic change. The brainstem appears normal. Diffusion-weighted images demonstrate no acute ischemi c insults. No chronic ischemic insults. Normal intravascular flow voids are present. Skull and face: Calvarial marrow is normal in signal. Orbits appear normal. Sinuses: Sinuses and mastoids appear clear. IMPRESSION: Unremarkable MRI of the brain. Reviewed by: Flaco Membreno MD on 05/03/2021 4:10 PM PST Approved by: Flaco Membreno MD on 05/03/2021 4:10 PM PST Station ID: [id number]
== END 2021-05-03 14:37 | disposition home or self-care (01) ==
LOC: DI 14:36
PROVIDERS: ATTEND Family Medicine
DX: G43.909 Migraine, unspecified, not intractable, without status migrainosus (principal); I10 Essential (primary) hypertension
CPT/HCPCS: 70553; A9585

== ENCOUNTER 2021-05-09 08:00 | Outpatient (CLI) | payer MEDICAID ==
--- NOTE | 2021-05-10 13:05 | XRAY Report ---
PROCEDURE: Knee 2 View LT INDICATIONS: STRAIN OF MUSCLES AND TENDONS OF L LOWER LEG TECHNIQUE: 2 views of the left knee(s) were acquired. COMPARISON: None. FINDINGS: Bones: No fractures or dislocations. No suspicious bony lesions. Soft tissues: No joint effusion. No suspicious soft tissue calcifications. IMPRESSION: Normal left knee Reviewed by: Leeanne Arce MD on 05/10/2021 1:04 PM PST Approved by: Leeanne Arce MD on 05/10/2021 1:04 PM PST Station ID: [id number]
== END 2021-05-09 23:59 ==
LOC: DI.N 08:00
PROVIDERS: ATTEND Nurse Practitioner
DX: S86.912A Strain of unspecified muscle(s) and tendon(s) at lower leg level, left leg, initial encounter (principal)

== ENCOUNTER 2021-05-18 07:52 | Outpatient (CLI) | payer MEDICAID ==
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
== END 2021-05-18 07:53 | disposition home or self-care (01) ==
LOC: DI 07:52
PROVIDERS: ATTEND Family Medicine
DX: R07.9 Chest pain, unspecified (principal); I10 Essential (primary) hypertension; E78.5 Hyperlipidemia, unspecified; Z82.49 Family history of ischemic heart disease and other diseases of the circulatory system
CPT/HCPCS: 93016; 93017; 93018; 93350

== ENCOUNTER 2021-06-27 08:53 | Outpatient (CLI) | payer MEDICAID ==
[2021-06-27 11:52] LABS: FECAL OCCULT BLOOD (FIT) POSITIVE (NEGATIVE)
[2021-06-27 12:02] LABS: BASOPHILS % (AUTO) 0.6 %; EOSINOPHILS # (AUTO) 0.1 10^3/uL (0.0-0.7); EOSINOPHILS % (AUTO) 1.5 %; HCT - HEMATOCRIT 40.6 % (37.0-47.0); HGB - HEMOGLOBIN 13.5 g/dL (12.0-16.0); LYMPHOCYTES # (AUTO) 1.6 10^3/uL (1.5-3.5); LYMPHOCYTES % (AUTO) 33.8 %; MEAN CORPUSCULAR HEMOGLOBIN 31.5 pg (27.0-31.0); MEAN CORPUSCULAR HGB CONC 33.3 g/dL (32.0-36.0); MEAN CORPUSCULAR VOLUME 94.6 fL (81.0-99.0); MEAN PLATELET VOLUME 9.8 fL (7.9-10.8); MONOCYTES # (AUTO) 0.3 10^3/uL (0.0-1.0); MONOCYTES % (AUTO) 5.4 %; NEUTROPHILS # (AUTO) 2.7 10^3/uL (1.5-6.6); NEUTROPHILS % (AUTO) 58.3 %; PLT - PLATELET COUNT 247 10^3/uL (130-450); RED BLOOD COUNT 4.29 10^6/uL (4.20-5.40); RED CELL DISTRIBUTION WIDTH 12.9 % (12.0-15.0); WHITE BLOOD COUNT 4.6 x10^3/uL (4.8-10.8)
[2021-06-27 12:06] LABS: ALBUMIN 4.2 g/dL (3.2-5.5); ALBUMIN/GLOBULIN RATIO 1.4 (1.0-2.2); BILIRUBIN,TOTAL 1.1 mg/dL (0.2-1.0); CALCIUM 9.3 mg/dL (8.5-10.3); CREATININE 0.7 mg/dL (0.4-1.0); POTASSIUM 4.1 mmol/L (3.5-5.0); TOTAL PROTEIN 7.3 g/dL (6.7-8.2)
== END 2021-06-27 08:54 | disposition home or self-care (01) ==
LOC: LAB.N 08:53
PROVIDERS: ATTEND Family Medicine
DX: R10.11 Right upper quadrant pain (principal); Z12.11 Encounter for screening for malignant neoplasm of colon
CPT/HCPCS: 36415; 80053; 82274; 83690; 85025

== ENCOUNTER 2021-07-04 09:19 | Outpatient (CLI) | payer MEDICAID ==
--- NOTE | 2021-07-04 11:57 | XRAY Report ---
PROCEDURE: Thoracic Spine 2 View INDICATIONS: THORACIC BACK PX TECHNIQUE: 3 views of the thoracic spine were acquired. COMPARISON: None. FINDINGS: Bones: No fractures or dislocations. Thousand and 1118 (in mid to lower thoracic spine are seen. No suspicious bony lesions. 12 pairs of ribs are noted, and appear intact where visualized. Soft tissues: No paravertebral stripe thickening. IMPRESSION: Mild degenerative disc disease in mid to lower thoracic spine. No acute compression fracture or spond ylolisthesis. Reviewed by: Ashwin Burger MD on 07/04/2021 11:56 AM PDT Approved by: Ashwin Burger MD on 07/04/2021 11:56 AM PDT Station ID: [id number]
--- NOTE | 2021-07-04 15:08 | XRAY Report ---
PROCEDURE: TMJ's-Temporal Mandibular Jts INDICATIONS: TMJ DERANGEMENT TECHNIQUE: 2 view(s) of the right and left acquired. COMPARISON: None. FINDINGS: Bones: No fractures or dislocations. Anterior subluxation/dislocation of the right mandibular condy le on the mandibular fossa on open mouth view. No suspicious bony lesions. Soft tissues: No suspicious soft tissue calcifications. IMPRESSION: 1. There is anterior subluxation/dislocation of the right mandibular condyle at the right TMJ on open mouth view. MRI would be helpful for further evaluation. 2. Unremarkable left TMJ. Reviewed by: Santo Birmingham MD on 07/04/2021 3:06 PM PDT Approved by: Santo Birmingham MD on 07/04/2021 3:06 PM PDT Station ID: [id number]
--- NOTE | 2021-07-04 15:20 | XRAY Report ---
PROCEDURE: Lumbar Spine 2 View INDICATIONS: CHRONIC LOW BACK PX TECHNIQUE: 3 views of the lumbar spine were acquired. COMPARISON: CT abdomen pelvis 03/21/2020. FINDINGS: Bones: 5 mwl-ebx-uidxwze vertebrae are present. There is grade 1/2 anterolisthesis of L5 on S1 leeann uring 1.0 cm. Pars defect is present L5. There is severe disc and foraminal narrowing noted at L5-S1. There is a 20% compression deformity at L5. No suspicious bony lesions. Mild wedge deformity is n oted at T12. Soft tissues: Overlying bowel gas pattern is normal. No suspicious soft tissue calcifications. IMPRESSION: Grade 1/2 anterolisthesis of L5 on S1 with 20% compression deformity of indeterminate age. L5 pars de fect is present. Wedge deformity at T12 of indeterminate age. Reviewed by: Yusra Galan MD on 07/04/2021 3:19 PM PDT Approved by: Yusra Galan MD on 07/04/2021 3:19 PM PDT Station ID: [id number]
== END 2021-07-04 09:20 | disposition home or self-care (01) ==
LOC: DI.N 09:19
PROVIDERS: ATTEND Physician Assistant Medical
DX: M51.34 Other intervertebral disc degeneration, thoracic region (principal); M43.17 Spondylolisthesis, lumbosacral region; M51.36 Other intervertebral disc degeneration, lumbar region; M48.061 Spinal stenosis, lumbar region without neurogenic claudication; R93.7 Abnormal findings on diagnostic imaging of other parts of musculoskeletal system

== ENCOUNTER 2021-07-22 07:50 | Outpatient (CLI) | payer MEDICAID | END 2021-07-22 23:59 | disposition home or self-care (01) | LOC: LAB.N 07:50 | PROVIDERS: ATTEND Physician Assistant Medical | DX: M54.6 Pain in thoracic spine (principal) | CPT/HCPCS: 87086 ==

== ENCOUNTER 2021-08-26 09:17 | Outpatient (CLI) | payer MEDICAID ==
[2021-08-26 18:55] LABS: HCT - HEMATOCRIT 38.1 % (37.0-47.0); HGB - HEMOGLOBIN 12.8 g/dL (12.0-16.0); MEAN CORPUSCULAR HEMOGLOBIN 32.3 pg (27.0-31.0); MEAN CORPUSCULAR HGB CONC 33.6 g/dL (32.0-36.0); MEAN CORPUSCULAR VOLUME 96.2 fL (81.0-99.0); MEAN PLATELET VOLUME 10.2 fL (7.9-10.8); RED BLOOD COUNT 3.96 10^6/uL (4.20-5.40); RED CELL DISTRIBUTION WIDTH 12.6 % (12.0-15.0); WHITE BLOOD COUNT 3.8 x10^3/uL (4.8-10.8)
[2021-08-26 19:03] LABS: ALBUMIN 4.2 g/dL (3.2-5.5); ALBUMIN/GLOBULIN RATIO 1.5 (1.0-2.2); BILIRUBIN,TOTAL 1.4 mg/dL (0.2-1.0); CALCIUM 9.4 mg/dL (8.5-10.3); CREATININE 0.7 mg/dL (0.4-1.0); POTASSIUM 4.1 mmol/L (3.5-5.0)
== END 2021-08-26 09:18 | disposition home or self-care (01) ==
LOC: LAB.N 09:17
PROVIDERS: ATTEND Physician Assistant
DX: R53.83 Other fatigue (principal)
CPT/HCPCS: 36415; 80053; 84443; 85027

== ENCOUNTER 2022-02-18 14:12 | Emergency (ER) | payer MEDICAID ==
[2022-02-18] MEDS ORDERED: SODIUM CHLORIDE 0.9% 1,000 ML IV STA (14:47)
--- NOTE | 2022-02-18 15:04 | XRAY Report ---
PROCEDURE: Chest 1 View X-Ray INDICATIONS: pain TECHNIQUE: One view of the chest was acquired. COMPARISON: Chest x-ray dated 04/19/2021 FINDINGS: Surgical changes and devices: None. Lungs and pleura: No pleural effusions or pneumothorax. Lungs are clear. Mediastinum: Mediastinal contours appear normal. Heart size is normal. Bones and chest wall: No suspicious bony lesions. Overlying soft tissues appear unremarkable. IMPRESSION: No acute process. Reviewed by: Benton Alamo MD on 02/18/2022 2:03 PM [facility] Approved by: Benton Alamo MD on 02/18/2022 2:03 PM [facility] Station ID: [id number]
--- NOTE | 2022-02-18 15:10 | ED Physician Documentation ---
History of Present Illness - Stated complaint Stated Complaint: HIGH BLOOD PRESSURE/LT EYE BLURRY - Chief complaint Chief Complaint: General - History obtained from History obtained from: Patient - Additonal information Additional information: Patient is a 56-year-old female with a history of hypertensionPresenting for evaluation of blurriness to her left vision around 1130 this morning along with elevated blood pressure readings at home. Patient reports feeling well this morning when she woke up and had checked her blood pressure prior to taking her losartan and it was normal. Short time later while she was cooking in the kitchen she reported feeling blurriness in the left eye along with some jaw pain and left upper thoracic pain.She opened up the windows and sat down to calm herself down and rechecked her blood pressure noted that the systolic was in the 180s. She then rechecked it a few times and noted that it did come down and she started to feel slightly better but her symptoms had still caused her concern. She reports that her vision appears to be back to normal now. She denies any current chest pain, difficulty breathing, abdominal pain, vomiting or diarrhea.She does have a history of migraines on the right but states that her symptoms this morning are not her usual migraine symptoms. Review of Systems Constitutional: denies: Fever Eyes: denies: Loss of vision Nose: denies: Congestion Cardiac: denies: Chest pain / pressure Respiratory: denies: Dyspnea GI: denies: Abdominal Pain, Vomiting : denies: Dysuria Musculoskeletal: denies: Back pain Neurologic: denies: Syncope PD PAST MEDICAL HISTORY - Present Medications Home Medications: Ambulatory Orders Medication Instructions Recorded Confirmed Meclizine HCl [Motion Sickness] 25 mg PO Q6H PRN #20 tablet 09/13/21 - Allergies Allergies/Adverse Reactions: Allergies Allergy/AdvReac Type Severity Reaction Status Date / Time latex Allergy Unknown Verified 02/18/22 14:33 nitrofurantoin Allergy Headache Verified 02/18/22 14:33 [From Macrobid] - Social History Does the pt smoke?: No Smoking Status: Never smoker Does the pt drink ETOH?: No PD ED PE NORMAL - General General: Alert and oriented X 3, No acute distress, Well developed/nourished - HEENT HEENT: Atraumatic, PERRL, EOMI, Moist mucous membranes, Pharynx benign - Neck Neck: Supple, no meningeal sign - Cardiac Cardiac: RRR, No murmur - Respiratory Respiratory: No respiratory distress, Clear bilaterally - Abdomen Abdomen: Soft, Non tender - Derm Derm: Warm and dry - Extremities Extremities: No edema - Neuro Neuro: Alert and oriented X 3, gas jockey 2-12 intact, No motor deficit, No sensory deficit, Normal speech, Other (Normal finger-nose bilaterally, normal gait) Results - Vitals Vitals: Vital Signs - 24 hr 02/18/22 02/18/22 14:21 16:25 Temperature 35.9 C L Heart Rate 72 76 Respiratory 16 20 Rate Blood Pressure 136/85 H 145/78 H O2 Saturation 100 98 Oxygen O2 Source Room air - EKG (time done) 1509 Rate: Rate (enter#) (69) Rhythm: NSR Ischemia: No: ST elevation c/w ischemia Compare to prior EKG: Unchanged from prior EKG (04/19/21) - Labs Labs: Laboratory Tests 02/18/22 02/18/22 02/18/22 15:05 15:05 15:05 WBC 5.6 RBC 4.15 L Hgb 13.1 Hct 38.8 MCV 93.5 MCH 31.6 H MCHC 33.8 RDW 12.1 Plt Count 235 MPV 8.9 Neut # (Auto) 4.2 Lymph # (Auto) 1.1 L [place] # (Auto) 0.2 Eos # (Auto) 0.0 Baso # (Auto) 0.0 Absolute Nucleated RBC 0.00 Nucleated RBC % 0.0 Sodium 135 Potassium 3.9 Chloride 96 L Carbon Dioxide 28 Anion Gap 11.0 BUN 16 Creatinine 0.6 Estimated GFR (MDRD) 103 Glucose 105 H Calcium 9.7 Magnesium 1.9 Total Bilirubin 1.2 H AST 21 ALT 21 Alkaline Phosphatase 49 Troponin I High Sens 6.8 Total Protein 7.2 Albumin 4.4 Globulin 2.8 Albumin/Globulin Ratio 1.6 PD MEDICAL DECISION MAKING - ED course Complexity details: reviewed results, re-evaluated patient, d/w patient ED course: Patient presenting for evaluation of Blurriness with her left vision Earlier today that was associated with an elevated blood pressure reading, pain in the jaw and left thoracic back. Her symptoms have improved. Her neuro exam here is normal and her visual acuity is intact. She has no eye complaints here. Her EKG is reassuring with a normal sinus rhythm. Her labs are normal with no signs of cardiac ischemia. Her chest x-ray is clear.Her blood pressure is slightly elevated but not to a significant range requiring emergent treatment.Patient is counseled on need for close follow-up with her primary care doctor and advised on concerning symptoms to return for. Departure - Departure Disposition: 01 Home, Self Care Clinical Impression: Essential hypertension, Vision changes Condition: Stable Instructions: ED HTN Established Follow-Up: Jasmina East PA [Primary Care Provider] - Comments: At this time I do not see signs of a stroke or heart attack. Your blood pressure has been slightly elevated. I would continue with your medications as prescribed and call your primary care doctor tomorrow for close follow-up. If you have any worsening symptoms please return to the emergency department. Discharge Date/Time: 02/18/22 16:42
[2022-02-18 15:15] LABS: BASOPHILS % (AUTO) 0.5 %; EOSINOPHILS % (AUTO) 0.2 %; HCT - HEMATOCRIT 38.8 % (37.0-47.0); HGB - HEMOGLOBIN 13.1 g/dL (12.0-16.0); LYMPHOCYTES # (AUTO) 1.1 10^3/uL (1.5-3.5); MEAN CORPUSCULAR HEMOGLOBIN 31.6 pg (27.0-31.0); MEAN CORPUSCULAR HGB CONC 33.8 g/dL (32.0-36.0); MEAN CORPUSCULAR VOLUME 93.5 fL (81.0-99.0); MEAN PLATELET VOLUME 8.9 fL (7.9-10.8); MONOCYTES # (AUTO) 0.2 10^3/uL (0.0-1.0); MONOCYTES % (AUTO) 3.1 %; NEUTROPHILS # (AUTO) 4.2 10^3/uL (1.5-6.6); PLT - PLATELET COUNT 235 10^3/uL (130-450); RED BLOOD COUNT 4.15 10^6/uL (4.20-5.40); RED CELL DISTRIBUTION WIDTH 12.1 % (12.0-15.0); WHITE BLOOD COUNT 5.6 x10^3/uL (4.8-10.8)
[2022-02-18 15:28] LABS: ALBUMIN 4.4 g/dL (3.2-5.5); ALBUMIN/GLOBULIN RATIO 1.6 (1.0-2.2); BILIRUBIN,TOTAL 1.2 mg/dL (0.2-1.0); CALCIUM 9.7 mg/dL (8.5-10.3); CREATININE 0.6 mg/dL (0.4-1.0); MAGNESIUM 1.9 mg/dL (1.7-2.8); POTASSIUM 3.9 mmol/L (3.5-5.0); TOTAL PROTEIN 7.2 g/dL (6.7-8.2)
[2022-02-18 16:25] VITALS: BP 145/78
== END 2022-02-18 16:42 | disposition home or self-care (01) ==
LOC: ED 14:12
DX: I10 Essential (primary) hypertension (principal); H53.9 Unspecified visual disturbance
CPT/HCPCS: 36415; 80053; 83735; 84484; 85025; 93005; 99282; 99284

== ENCOUNTER 2022-02-24 09:05 | Outpatient (CLI) | payer MEDICAID ==
[2022-02-24 19:24] LABS: RHEUMATOID FACTOR NEGATIVE (Negative)
[2022-02-24 19:48] LABS: BILIRUBIN,URINE NEGATIVE (NEGATIVE); GLUCOSE, URINE (UA) NEGATIVE (NEGATIVE); KETONES,URINE (UA) NEGATIVE (NEGATIVE); LEUKOCYTE ESTERASE, URINE NEGATIVE (NEGATIVE); NITRITE,URINE NEGATIVE (NEGATIVE); OCCULT BLOOD,URINE MODERATE (NEGATIVE); PROTEIN,URINE NEGATIVE (NEGATIVE); UROBILINOGEN,URINE 0.2 (NORMAL) E.U./dL (NORMAL)
[2022-02-24 19:55] LABS: CLARITY,URINE HAZY (CLEAR)
[2022-02-24 20:03] LABS: BACTERIA,URINE Few /HPF (None Seen); SQUAMOUS EPITHELIAL CELL,UR FEW Squamous (<= Few); WBC,URINE 0-3 /HPF (0-5)
[2022-02-24 20:04] LABS: CASTS, URINE 0-2 Hyaline Casts /LPF
[2022-02-27 13:11] LABS: ANTINUCLEAR ANTIBODIES IFA Negative (.)
[2022-02-27 15:08] LABS: ANTI-DNA (DS) AB QN 1 IU/mL (0-9)
[2022-02-27 19:07] LABS: CYCLIC CITRULLINATED PEP IGG/A 3 units (0-19)
== END 2022-02-24 09:06 | disposition home or self-care (01) ==
LOC: LAB.N 09:05
PROVIDERS: ATTEND Physician Assistant
DX: R30.0 Dysuria (principal); R53.83 Other fatigue; M25.50 Pain in unspecified joint
CPT/HCPCS: 36415; 81001; 83615; 85651; 86038; 86140; 86200; 86225; 86430; 87086

== ENCOUNTER 2022-04-17 08:25 | Outpatient (CLI) | payer MEDICAID | END 2022-04-17 08:26 | disposition home or self-care (01) | LOC: MAC.MOP 08:25 | PROVIDERS: ATTEND Physician Assistant | DX: H53.129 Transient visual loss, unspecified eye (principal) | CPT/HCPCS: 93246 ==

== ENCOUNTER 2022-05-04 11:00 | Outpatient (CLI) | payer MEDICAID | END 2022-05-04 11:01 | disposition home or self-care (01) | LOC: MAC.MOP 11:00 | PROVIDERS: ATTEND Physician Assistant | DX: H54.7 Unspecified visual loss (principal); I49.1 Atrial premature depolarization; I49.3 Ventricular premature depolarization; I49.8 Other specified cardiac arrhythmias | CPT/HCPCS: 93244 ==

== ENCOUNTER 2022-05-07 08:27 | Outpatient (CLI) | payer MEDICAID ==
[2022-05-07 08:59] LABS: BASOPHILS % (AUTO) 1.1 %; EOSINOPHILS # (AUTO) 0.1 10^3/uL (0.0-0.7); EOSINOPHILS % (AUTO) 1.6 %; HCT - HEMATOCRIT 38.8 % (37.0-47.0); LYMPHOCYTES # (AUTO) 1.8 10^3/uL (1.5-3.5); MEAN CORPUSCULAR HEMOGLOBIN 31.6 pg (27.0-31.0); MEAN CORPUSCULAR HGB CONC 33.5 g/dL (32.0-36.0); MEAN CORPUSCULAR VOLUME 94.4 fL (81.0-99.0); MONOCYTES # (AUTO) 0.2 10^3/uL (0.0-1.0); MONOCYTES % (AUTO) 5.2 %; NEUTROPHILS # (AUTO) 1.6 10^3/uL (1.5-6.6); NEUTROPHILS % (AUTO) 43.8 %; PLT - PLATELET COUNT 218 10^3/uL (130-450); RED BLOOD COUNT 4.11 10^6/uL (4.20-5.40); RED CELL DISTRIBUTION WIDTH 12.3 % (12.0-15.0); WHITE BLOOD COUNT 3.7 x10^3/uL (4.8-10.8)
[2022-05-07 09:22] LABS: ALBUMIN 4.3 g/dL (3.2-5.5); ALBUMIN/GLOBULIN RATIO 1.4 (1.0-2.2); ALKALINE PHOSPHATASE 43 IU/L (42-121); ALT ALANINE AMINOTRANSFERASE 22 IU/L (10-60); AST ASPARTATE AMINOTRANSFERASE 21 IU/L (10-42); BILIRUBIN,TOTAL 2.2 mg/dL (0.2-1.0); BUN - BLOOD UREA NITROGEN 15 mg/dL (6-20); CALCIUM 9.7 mg/dL (8.5-10.3); CARBON DIOXIDE - CO2 29 mmol/L (21-32); CHLORIDE 99 mmol/L (101-111); CHOL/HDL RATIO 3.8 (<4.4); CHOLESTEROL 250 mg/dL; CREATININE 0.7 mg/dL (0.4-1.0); GFR - MDRD 86 (>89); GLUCOSE 96 mg/dL (70-100); HDL CHOLESTEROL 65 mg/dL; LDL CHOLESTEROL,CALCULATED 172 mg/dL; LDL/HDL RATIO 2.6 (<4.4); POTASSIUM 4.1 mmol/L (3.5-5.0); SODIUM 135 mmol/L (135-145); TOTAL PROTEIN 7.3 g/dL (6.7-8.2); TRIGLYCERIDES 65 mg/dL; VLDL CHOLESTEROL 13 mg/dL
[2022-05-07 09:29] LABS: BILIRUBIN,URINE NEGATIVE (NEGATIVE); GLUCOSE, URINE (UA) NEGATIVE (NEGATIVE); KETONES,URINE (UA) NEGATIVE (NEGATIVE); LEUKOCYTE ESTERASE, URINE NEGATIVE (NEGATIVE); NITRITE,URINE NEGATIVE (NEGATIVE); OCCULT BLOOD,URINE SMALL (NEGATIVE); PROTEIN,URINE NEGATIVE (NEGATIVE); UROBILINOGEN,URINE 0.2 (NORMAL) E.U./dL (NORMAL)
[2022-05-07 09:30] LABS: CLARITY,URINE CLEAR (CLEAR)
[2022-05-07 09:32] LABS: THYROID STIMULATING HORMONE 3.23 uIU/mL (0.34-5.60)
[2022-05-07 09:53] LABS: BACTERIA,URINE Rare /HPF (None Seen); RBC,URINE 0-5 /HPF (0-5); SQUAMOUS EPITHELIAL CELL,UR RARE Squamous (<= Few); WBC,URINE 0-3 /HPF (0-5)
[2022-05-07 14:05] LABS: ESTIMATED AVERAGE GLUCOSE 108 mg/dL (70-100); HEMOGLOBIN A1c% 5.4 % (4.27-6.07)
== END 2022-05-07 08:28 | disposition home or self-care (01) ==
LOC: LAB 08:27
PROVIDERS: ATTEND Physician Assistant
DX: I10 Essential (primary) hypertension (principal); E78.5 Hyperlipidemia, unspecified; R31.21 Asymptomatic microscopic hematuria; R73.01 Impaired fasting glucose; R70.0 Elevated erythrocyte sedimentation rate
CPT/HCPCS: 36415; 80053; 80061; 81001; 83036; 83721; 84443; 85025; 85651; 87086

== ENCOUNTER 2022-05-26 09:25 | Outpatient (CLI) | payer MEDICAID ==
[2022-05-26 09:55] LABS: BASOPHILS % (AUTO) 0.8 %; EOSINOPHILS # (AUTO) 0.1 10^3/uL (0.0-0.7); EOSINOPHILS % (AUTO) 1.4 %; HCT - HEMATOCRIT 39.7 % (37.0-47.0); HGB - HEMOGLOBIN 13.2 g/dL (12.0-16.0); LYMPHOCYTES # (AUTO) 1.8 10^3/uL (1.5-3.5); LYMPHOCYTES % (AUTO) 51.5 %; MEAN CORPUSCULAR HEMOGLOBIN 31.7 pg (27.0-31.0); MEAN CORPUSCULAR HGB CONC 33.2 g/dL (32.0-36.0); MEAN CORPUSCULAR VOLUME 95.4 fL (81.0-99.0); MEAN PLATELET VOLUME 8.8 fL (7.9-10.8); MONOCYTES # (AUTO) 0.2 10^3/uL (0.0-1.0); MONOCYTES % (AUTO) 4.5 %; NEUTROPHILS # (AUTO) 1.5 10^3/uL (1.5-6.6); NEUTROPHILS % (AUTO) 41.8 %; PLT - PLATELET COUNT 201 10^3/uL (130-450); RED BLOOD COUNT 4.16 10^6/uL (4.20-5.40); RED CELL DISTRIBUTION WIDTH 12.1 % (12.0-15.0); WHITE BLOOD COUNT 3.6 x10^3/uL (4.8-10.8)
[2022-05-26 10:08] LABS: BUN - BLOOD UREA NITROGEN 17 mg/dL (6-20); CALCIUM 9.5 mg/dL (8.5-10.3); CARBON DIOXIDE - CO2 30 mmol/L (21-32); CHLORIDE 102 mmol/L (101-111); CREATININE 0.7 mg/dL (0.4-1.0); GFR - MDRD 86 (>89); GLUCOSE 100 mg/dL (70-100); POTASSIUM 3.7 mmol/L (3.5-5.0); SODIUM 139 mmol/L (135-145)
[2022-05-26 10:11] LABS: CRP - C-REACTIVE PROTEIN < 1.0 mg/dL (0-1.0)
--- NOTE | 2022-05-26 10:31 | XRAY Report ---
PROCEDURE: Knee 3 View RT INDICATIONS: KNEE PAINT RIGHT TECHNIQUE: 3 views of the right knee(s) were acquired. COMPARISON: None. FINDINGS: Bones: No fractures or dislocations. No suspicious bony lesions. Patellar enthesophytes. Soft tissues: No significant joint effusion. No suspicious soft tissue calcifications. IMPRESSION: No acute fracture, unremarkable knee radiographs. Reviewed by: Sanjeev Membreno MD on 05/26/2022 9:29 AM [facility] Approved by: Sanjeev Membreno MD on 05/26/2022 9:29 AM [facility] Station ID: [id number]
== END 2022-05-26 09:26 | disposition home or self-care (01) ==
LOC: LAB 09:25
PROVIDERS: ATTEND Internal Medicine
DX: R51.9 Headache, unspecified (principal); M25.561 Pain in right knee
CPT/HCPCS: 36415; 80048; 85025; 85651; 86140

== ENCOUNTER 2022-06-19 13:58 | Outpatient (CLI) | payer MEDICAID ==
--- NOTE | 2022-06-19 08:53 | XRAY Report ---
PROCEDURE: Knee 2 View RT INDICATIONS: RIGHT KNEE PAIN, BILAT AP AND RIGHT PA TUNNEL ONLY TECHNIQUE: 2 views of the right knee(s) were acquired. COMPARISON: None. FINDINGS: Bones: No fractures or dislocations. No suspicious bony lesions. Mild tibiofemoral joint space narr owing. Tiny osteophyte along the lateral tibial plateau. Soft tissues: No effusion. No suspicious soft tissue calcifications or masses. IMPRESSION: No acute bony abnormality. Mild tibiofemoral osteoarthritis. Reviewed by: Chato Das on 06/19/2022 8:52 AM PDT Approved by: Chato Das on 06/19/2022 8:52 AM PDT Station ID: [id number]
== END 2022-06-19 14:01 | disposition home or self-care (01) ==
LOC: DI.WOS 13:58
PROVIDERS: ATTEND Orthopaedic Surgery
DX: M76.51 Patellar tendinitis, right knee (principal); M17.11 Unilateral primary osteoarthritis, right knee

== ENCOUNTER 2022-12-18 07:15 | Outpatient (CLI) | payer MEDICAID | END 2022-12-18 07:30 | disposition home or self-care (01) | LOC: LAB.N 07:15 | PROVIDERS: ATTEND Family Medicine | DX: R30.0 Dysuria (principal) | CPT/HCPCS: 87086; 87181 ==

== ENCOUNTER 2023-01-15 18:14 | Emergency (ER) | payer MEDICAID ==
[2023-01-15 19:04] LABS: BILIRUBIN,URINE NEGATIVE (NEGATIVE); CLARITY,URINE CLEAR (CLEAR); GLUCOSE, URINE (UA) NEGATIVE (NEGATIVE); KETONES,URINE (UA) NEGATIVE (NEGATIVE); LEUKOCYTE ESTERASE, URINE NEGATIVE (NEGATIVE); NITRITE,URINE NEGATIVE (NEGATIVE); OCCULT BLOOD,URINE MODERATE (NEGATIVE); PROTEIN,URINE NEGATIVE (NEGATIVE); UROBILINOGEN,URINE 0.2 (NORMAL) E.U./dL (NORMAL)
[2023-01-15 19:18] LABS: BACTERIA,URINE Rare /HPF (None Seen); SQUAMOUS EPITHELIAL CELL,UR FEW Squamous (<= Few); WBC,URINE 0-3 /HPF (0-5)
[2023-01-15 19:32] LABS: BASOPHILS % (AUTO) 0.4 %; EOSINOPHILS % (AUTO) 0.4 %; HCT - HEMATOCRIT 37.7 % (37.0-47.0); HGB - HEMOGLOBIN 12.6 g/dL (12.0-16.0); LYMPHOCYTES # (AUTO) 1.2 10^3/uL (1.5-3.5); LYMPHOCYTES % (AUTO) 21.2 %; MEAN CORPUSCULAR HEMOGLOBIN 32.2 pg (27.0-31.0); MEAN CORPUSCULAR HGB CONC 33.4 g/dL (32.0-36.0); MEAN CORPUSCULAR VOLUME 96.4 fL (81.0-99.0); MEAN PLATELET VOLUME 9.1 fL (7.9-10.8); MONOCYTES # (AUTO) 0.2 10^3/uL (0.0-1.0); MONOCYTES % (AUTO) 3.8 %; NEUTROPHILS # (AUTO) 4.1 10^3/uL (1.5-6.6); NEUTROPHILS % (AUTO) 73.8 %; PLT - PLATELET COUNT 209 10^3/uL (130-450); RED BLOOD COUNT 3.91 10^6/uL (4.20-5.40); RED CELL DISTRIBUTION WIDTH 12.6 % (12.0-15.0); WHITE BLOOD COUNT 5.5 x10^3/uL (4.8-10.8)
[2023-01-15 19:49] LABS: ALBUMIN 4.6 g/dL (3.2-5.5); ALBUMIN/GLOBULIN RATIO 1.6 (1.0-2.2); BILIRUBIN,TOTAL 1.1 mg/dL (0.2-1.0); CALCIUM 9.8 mg/dL (8.5-10.3); CREATININE 0.7 mg/dL (0.6-1.3); POTASSIUM 4.1 mmol/L (3.5-4.5); TOTAL PROTEIN 7.5 g/dL (6.4-8.9)
[2023-01-15 19:51] LABS: TROPONIN I HIGH SENSITIVITY 6.8 ng/L (2.3-14.8)
--- NOTE | 2023-01-15 19:54 | XRAY Report ---
PROCEDURE: Chest 1 View X-Ray INDICATIONS: Chest pain TECHNIQUE: One view of the chest was acquired. COMPARISON: CXR 02/18/2022. FINDINGS: Surgical changes and devices: None. Lungs and pleura: No pleural effusions or pneumothorax. Lungs are clear. Mediastinum: Mediastinal contours appear normal. Heart size is normal. Bones and chest wall: No suspicious bony lesions. Overlying soft tissues appear unremarkable. IMPRESSION: No acute cardiopulmonary process. Reviewed by: Morteza Ochoa MD on 01/15/2023 7:53 PM PST Approved by: Morteza Ochoa MD on 01/15/2023 7:53 PM [facility] Station ID: [id number]
--- NOTE | 2023-01-15 22:27 | ED Physician Documentation ---
History of Present Illness - Stated complaint Stated Complaint: ABNORMAL EKG - Chief complaint Chief Complaint: Cardiac - History obtained from History obtained from: Patient - Additonal information Additional information: HPI from patient. Patient c/o left shoulder and left upper back pain since coughing spell last night. Patient says she had sudden onset coughing lasting approximately 5 minutes last night without apparent inciting event, has had the left shoulder and left upper back pain since that time. Denies pleuritic component,denies shortness of breath. Denies chest pain per se. Denies h/o similar symptoms. Review of Systems Constitutional: reports: Reviewed and negative Cardiac: denies: Chest pain / pressure, Palpitations, Pedal edema, Calf pain Respiratory: reports: Cough. denies: Dyspnea, Hemoptysis, Wheezing GI: reports: Reviewed and negative Musculoskeletal: denies: Extremity swelling PD PAST MEDICAL HISTORY - Past Medical History Past Medical History: No - Present Medications Home Medications: Ambulatory Orders Medication Instructions Recorded Confirmed Cholecalciferol (Vitamin D3) 2,000 mcg PO DAILY 04/17/22 04/17/22 [Vitamin D3] Losartan [Cozaar] 100 mg PO DAILY 04/17/22 04/17/22 - Allergies Allergies/Adverse Reactions: Allergies Allergy/AdvReac Type Severity Reaction Status Date / Time latex Allergy Unknown Verified 04/17/22 09:17 nitrofurantoin Allergy Headache Verified 04/17/22 09:17 [From Macrobid] - Social History Does the pt smoke?: No Smoking Status: Never smoker Does the pt drink ETOH?: No PD ED PE NORMAL - Vitals Vital signs reviewed: Yes - General General: Alert and oriented X 3, No acute distress, Well developed/nourished - Neck Neck: Supple, no meningeal sign - Cardiac Cardiac: RRR, No murmur, No gallop, No rub - Respiratory Respiratory: No respiratory distress, Clear bilaterally - Abdomen Abdomen: Soft, Non tender - Back Back: No CVA TTP, No spinal TTP - Derm Derm: Normal color, Warm and dry, No rash - Extremities Extremities: No edema Results - Vitals Vitals: Oxygen O2 Source Room air - EKG (time done) No standard instances EKG releavant findings:: EKG personally interpreted by author of this note. Relevant findings are: Rate: Rate (enter#) (66) Rhythm: NSR [place]: Normal, Anterior hemiblock Intervals: Normal NC, RBBB (incomplete) QRS: Normal Ischemia: Normal ST segments Computer interpretation: Disagree with computer (no ST changes including depression/elevation) - Labs Labs: Laboratory Tests 01/15/23 01/15/23 01/15/23 18:58 19:26 19:26 WBC 5.5 RBC 3.91 L Hgb 12.6 Hct 37.7 MCV 96.4 MCH 32.2 H MCHC 33.4 RDW 12.6 Plt Count 209 MPV 9.1 Neut # (Auto) 4.1 Lymph # (Auto) 1.2 L [place] # (Auto) 0.2 Eos # (Auto) 0.0 Baso # (Auto) 0.0 Absolute Nucleated RBC 0.00 Nucleated RBC % 0.0 Sodium 138 Potassium 4.1 Chloride 103 Carbon Dioxide 29 Anion Gap 6.0 BUN 21 H Creatinine 0.7 Estimated GFR (MDRD) 86 L Glucose 113 H Calcium 9.8 Total Bilirubin 1.1 H AST 17 ALT 16 Alkaline Phosphatase 44 Troponin I High Sens 6.8 Total Protein 7.5 Albumin 4.6 Globulin 2.9 Albumin/Globulin Ratio 1.6 Lipase 27 Urine Color YELLOW Urine Clarity CLEAR Urine pH 6.0 Ur Specific [place] <=1.005 Urine Protein NEGATIVE Urine Glucose (UA) NEGATIVE Urine Ketones NEGATIVE Urine Occult Blood MODERATE H Urine Nitrite NEGATIVE Urine Bilirubin NEGATIVE Urine Urobilinogen 0.2 (NORMAL) Ur Leukocyte Esterase NEGATIVE Urine RBC 6-10 H Urine WBC 0-3 Ur Squamous Epith Cells FEW Squamous Urine Bacteria Rare Ur Microscopic Review INDICATED Urine Culture Comments NOT INDICATED - Rads (name of study) chest xray Relevant Findings:: Prelim report reviewed, See rad report PD Medical Decision Making - ED course Complexity details: reviewed results, re-evaluated patient, considered differential, d/w patient ED course: no concerning nor diagnostic findings on EKG, CXR, CBC, ER abdominal panel, UA. hs-cTn negative (WNL). Etiology of patient's symptoms unclear at this time. Results d/w patient, return precautions reviewed, and advised patient to follow up with PMD next available appointment Departure - Departure Disposition: 01 Home, Self Care Clinical Impression: Chest pain Condition: Good Instructions: ED Chest Pain Atypical Unkn Cause Follow-Up: Jasmina East PA [Primary Care Provider] - Comments: There were no concerning nor diagnostic findings on tonight's test, including the blood tests, chest x-ray, and the EKG. As we discussed, there were some minor abnormalities on the EKG but these are not indicative of an acute problem such as angina or heart attack. The cause of your symptoms is not apparent at this time. Follow-up with your primary care provider, next available appointment. Further tests might be helpful/necessary, particularly if your symptoms are reoccurring. Forms: PCP List Discharge Date/Time: 01/15/23 23:01
[2023-01-15 23:08] VITALS: BP 140/77; O2SAT 100
== END 2023-01-15 23:01 | disposition home or self-care (01) ==
LOC: ED 18:14
DX: R07.9 Chest pain, unspecified (principal)
CPT/HCPCS: 36415; 80053; 81001; 81003; 83690; 84484; 85025; 87086; 93005; 99283; 99284

== ENCOUNTER 2023-02-20 14:37 | Outpatient (CLI) | payer MEDICAID ==
--- NOTE | 2023-02-21 10:19 | Mammography Report ---
BILATERAL DIGITAL SCREENING MAMMOGRAM 3D/2D: 02/20/2023 CLINICAL: Routine screening. Family history of breast cancer. Comparison is made to exams dated: 02/08/2022 ultrasound, 02/08/2022 ultrasound, 02/08/2022 mammogram, 04/10/2021 mammogram, and 04/07/2020 mammogram - [facility]. There are scattered areas of fibroglandular density in both breasts (category b / 25%-50% glandular t issue). No significant masses, calcifications, or other findings are seen in either breast. There has been no significant interval change. IMPRESSION: NEGATIVE There is no mammographic evidence of malignancy. A 1 year screening mammogram is recommended. Based on the Tyrer Cuzick model (a risk assessment model) the patients lifetime risk is 19.0% and he r 10 year risk is 6.7%. According to the ACR, ACS, and NCCN guidelines, an annual breast MRI exam tim ng with mammogram is recommended if the patients lifetime risk is 20% or greater. This exam was interpreted at Station ID: [id number]. NOTE: For mammograms, a report in lay terms will be sent to the patient. Approximately 15% of breast malignancies will not be visualized mammographically. In the management of a palpable breast mass, a negative mammogram must not discourage biopsy of a clinically suspicious lesion. Electronically Signed By: Tiki Vazquez M.D., PH.D musa/chika:02/21/2023 00:40:28 letter sent: No_Letter ACR BI-RADS Category 1: Negative 3341F PARENCHYMAL PATTERN: (A) - The breast(s) demonstrate(s) scattered fibroglandular densities. BI-RADS CATEGORY: (1) - 1 Mammogram [id number] 1 year screening LATERALITY: (B)
== END 2023-02-20 14:38 | disposition home or self-care (01) ==
LOC: DI.N 14:37
PROVIDERS: ATTEND Physician Assistant
DX: Z12.31 Encounter for screening mammogram for malignant neoplasm of breast (principal); Z80.3 Family history of malignant neoplasm of breast; R92.323 Mammographic fibroglandular density, bilateral breasts

== ENCOUNTER 2023-05-27 16:56 | Outpatient (CLI) | payer MEDICAID ==
[2023-05-27 17:22] LABS: BILIRUBIN,URINE NEGATIVE (NEGATIVE); GLUCOSE, URINE (UA) NEGATIVE (NEGATIVE); KETONES,URINE (UA) NEGATIVE (NEGATIVE); LEUKOCYTE ESTERASE, URINE NEGATIVE (NEGATIVE); NITRITE,URINE NEGATIVE (NEGATIVE); OCCULT BLOOD,URINE MODERATE (NEGATIVE); PROTEIN,URINE NEGATIVE (NEGATIVE); UROBILINOGEN,URINE 0.2 (NORMAL) E.U./dL (NORMAL)
[2023-05-27 18:03] LABS: CLARITY,URINE CLEAR (CLEAR)
[2023-05-27 18:04] LABS: BACTERIA,URINE None Seen /HPF (None Seen); RBC,URINE 0-5 /HPF (0-5); SQUAMOUS EPITHELIAL CELL,UR RARE Squamous (<= Few); WBC,URINE 0-3 /HPF (0-5)
== END 2023-05-27 16:57 | disposition home or self-care (01) ==
LOC: LAB 16:56
PROVIDERS: ATTEND Physician Assistant
DX: R31.9 Hematuria, unspecified (principal)
CPT/HCPCS: 81001; 87086

== ENCOUNTER 2023-06-29 13:58 | Outpatient (CLI) | payer MEDICAID ==
[2023-06-29 14:16] LABS: BILIRUBIN,URINE NEGATIVE (NEGATIVE); GLUCOSE, URINE (UA) NEGATIVE (NEGATIVE); KETONES,URINE (UA) NEGATIVE (NEGATIVE); LEUKOCYTE ESTERASE, URINE NEGATIVE (NEGATIVE); NITRITE,URINE NEGATIVE (NEGATIVE); OCCULT BLOOD,URINE MODERATE (NEGATIVE); PH,URINE 6.5 PH (5.0-7.5); PROTEIN,URINE NEGATIVE (NEGATIVE); UROBILINOGEN,URINE 0.2 (NORMAL) E.U./dL (NORMAL)
[2023-06-29 14:22] LABS: BACTERIA,URINE None Seen /HPF (None Seen); CLARITY,URINE CLEAR (CLEAR); SQUAMOUS EPITHELIAL CELL,UR RARE Squamous (<= Few); WBC,URINE 0-3 /HPF (0-5)
== END 2023-06-29 13:59 | disposition home or self-care (01) ==
LOC: LAB 13:58
PROVIDERS: ATTEND Physician Assistant
DX: R31.9 Hematuria, unspecified (principal); R35.0 Frequency of micturition
CPT/HCPCS: 81001; 87077; 87086; 87181

== ENCOUNTER 2023-07-22 08:00 | Outpatient (CLI) | payer MEDICAID | END 2023-07-22 23:59 | disposition home or self-care (01) | LOC: LAB.N 08:00 | PROVIDERS: ATTEND Physician Assistant Medical | DX: N39.0 Urinary tract infection, site not specified (principal) | CPT/HCPCS: 87086 ==

== ENCOUNTER 2023-07-22 10:37 | Outpatient (CLI) | payer MEDICAID ==
[2023-07-22 10:54] LABS: BASOPHILS % (AUTO) 0.8 %; EOSINOPHILS # (AUTO) 0.1 10^3/uL (0.0-0.7); EOSINOPHILS % (AUTO) 1.3 %; HCT - HEMATOCRIT 37.6 % (37.0-47.0); HGB - HEMOGLOBIN 12.4 g/dL (12.0-16.0); LYMPHOCYTES # (AUTO) 1.3 10^3/uL (1.5-3.5); LYMPHOCYTES % (AUTO) 33.2 %; MEAN CORPUSCULAR HEMOGLOBIN 31.7 pg (27.0-31.0); MEAN CORPUSCULAR VOLUME 96.2 fL (81.0-99.0); MONOCYTES # (AUTO) 0.2 10^3/uL (0.0-1.0); MONOCYTES % (AUTO) 4.8 %; NEUTROPHILS # (AUTO) 2.4 10^3/uL (1.5-6.6); NEUTROPHILS % (AUTO) 59.9 %; PLT - PLATELET COUNT 197 10^3/uL (130-450); RED BLOOD COUNT 3.91 10^6/uL (4.20-5.40); RED CELL DISTRIBUTION WIDTH 12.4 % (12.0-15.0)
[2023-07-22 11:10] LABS: ALBUMIN 4.4 g/dL (3.2-5.5); ALBUMIN/GLOBULIN RATIO 1.8 (1.0-2.2); ALKALINE PHOSPHATASE 40 IU/L (42-121); ALT ALANINE AMINOTRANSFERASE 11 IU/L (10-60); AST ASPARTATE AMINOTRANSFERASE 15 IU/L (10-42); BILIRUBIN,TOTAL 0.9 mg/dL (0.2-1.0); BUN - BLOOD UREA NITROGEN 17 mg/dL (6-20); CALCIUM 9.7 mg/dL (8.5-10.3); CARBON DIOXIDE - CO2 30 mmol/L (21-32); CHLORIDE 103 mmol/L (101-111); CHOL/HDL RATIO 3.5 (<4.4); CHOLESTEROL 205 mg/dL; CREATININE 0.6 mg/dL (0.6-1.3); GFR - MDRD 103 (>89); GLUCOSE 96 mg/dL (74-104); HDL CHOLESTEROL 58 mg/dL; LDL CHOLESTEROL,CALCULATED 129 mg/dL; LDL/HDL RATIO 2.2 (<4.4); POTASSIUM 4.1 mmol/L (3.5-4.5); SODIUM 137 mmol/L (135-145); TOTAL PROTEIN 6.9 g/dL (6.4-8.9); TRIGLYCERIDES 91 mg/dL (48-352); VLDL CHOLESTEROL 18 mg/dL
[2023-07-22 11:26] LABS: THYROID STIMULATING HORMONE 1.27 uIU/mL (0.34-5.60)
[2023-07-22 13:26] LABS: ESTIMATED AVERAGE GLUCOSE 108 mg/dL (70-100); HEMOGLOBIN A1c% 5.4 % (4.27-6.07)
== END 2023-07-22 10:38 | disposition home or self-care (01) ==
LOC: LAB 10:37
PROVIDERS: ATTEND Physician Assistant Medical
DX: N39.0 Urinary tract infection, site not specified (principal); E78.5 Hyperlipidemia, unspecified; I10 Essential (primary) hypertension; R73.01 Impaired fasting glucose
CPT/HCPCS: 36415; 80053; 80061; 83036; 83721; 84443; 85025; 87086

== ENCOUNTER 2023-07-25 07:59 | Outpatient (CLI) | payer MEDICAID ==
--- NOTE | 2023-07-26 08:45 | Mammography Report ---
UNILATERAL LEFT DIGITAL DIAGNOSTIC MAMMOGRAM 3D/2D: 07/25/2023 CLINICAL: Intermittent pain in left breast. Additional evaluation requested from prior study. Comparison is made to exams dated: 02/20/2023 mammogram, 02/08/2022 mammogram, 04/10/2021 mammogram, a nd 04/07/2020 mammogram - [facility]. There are scattered areas of fibroglandular density in the left breast (category b / 25%-50% glandula r tissue). No significant masses, calcifications, or other findings are seen in the breast. Left breast mammogr am is stable without new finding in the 9:00 position as suggested by ultrasound. IMPRESSION: INCOMPLETE: NEEDS ADDITIONAL IMAGING EVALUATION There is no abnormality seen in the left breast to correspond with the mass at 9 o'clock. Targeted re peat ultrasound is recommended for full evaluation of this area. This was performed immediately follo wing this exam. Future imaging is recommended as follows: 02/21/2024 screening mammogram. Based on the Tyrer Cuzick model (a risk assessment model) the patient's lifetime risk is 18.7% and he r 10 year risk is 7.0%. According to the ACR, ACS, and NCCN guidelines, an annual breast MRI exam tim ng with mammogram is recommended if the patient's lifetime risk is 20% or greater. This exam was interpreted at Station ID: [id number]. NOTE: For mammograms, a report in lay terms will be sent to the patient. Approximately 15% of breast malignancies will not be visualized mammographically. In the management of a palpable breast mass, a negative mammogram must not discourage biopsy of a clinically suspicious lesion. Electronically Signed By: Leeanne larson/:07/25/2023 11:40:01 ACR BI-RADS Category 0: Incomplete 3340F PARENCHYMAL PATTERN: (A) - The breast(s) demonstrate(s) scattered fibroglandular densities. BI-RADS CATEGORY: (0) - 0 Ultrasound [id number] Immediate follow-up LATERALITY: (B)
--- NOTE | 2023-07-26 08:45 | Ultrasound Report ---
LIMITED ULTRASOUND OF LEFT BREAST: 07/25/2023 CLINICAL: Patient returns for additional imaging over a suspected mass in the left breast. Comparison is made to exams dated: 07/25/2023 mammogram, 02/20/2023 mammogram, 02/08/2022 ultrasound, 02/08/2022 mammogram, 04/10/2021 mammogram, and 04/07/2020 mammogram - [facility]. Ultrasound of the left breast 9 o'clock region was performed. Covarrubias scale images of the real-time ex amination were reviewed. No significant abnormalities were seen sonographically in the left breast. Specifically, no finding to correspond to the patient's reported previous ultrasound abnormality. IMPRESSION: NEGATIVE There is no sonographic evidence of malignancy. Return to annual mammogram screening schedule in february is recommended. Future imaging is recommen ded as follows: 02/21/2024 screening mammogram. Findings and recommendations were conveyed to the patient at time of exam. This exam was interpreted at Station ID: [id number]. Electronically Signed By: Leeanne larson/:07/25/2023 11:43:52 letter sent: No_Letter Ultrasound BI-RADS: 1 Negative BI-RADS CATEGORY: (1) - 1 Mammogram [id number] return to screening LATERALITY: (B)
== END 2023-07-25 08:00 | disposition home or self-care (01) ==
LOC: DI 07:59
PROVIDERS: ATTEND Physician Assistant
DX: N63.25 Unspecified lump in the left breast, overlapping quadrants (principal); R92.322 Mammographic fibroglandular density, left breast

== ENCOUNTER 2023-08-31 08:00 | Outpatient (CLI) | payer MEDICAID | END 2023-08-31 23:59 | disposition home or self-care (01) | LOC: LAB.N 08:00 | PROVIDERS: ATTEND Physician Assistant Medical | DX: N39.0 Urinary tract infection, site not specified (principal) | CPT/HCPCS: 87086 ==

== ENCOUNTER 2023-10-08 08:00 | Outpatient (CLI) | payer MEDICAID | END 2023-10-08 23:59 | disposition home or self-care (01) | LOC: LAB.N 08:00 | PROVIDERS: ATTEND Nurse Practitioner | DX: R10.9 Unspecified abdominal pain (principal) | CPT/HCPCS: 87086 ==

== ENCOUNTER 2023-10-11 08:45 | Outpatient (CLI) | payer MEDICAID ==
[2023-10-11 09:21] LABS: ALBUMIN 4.4 g/dL (3.2-5.5); BILIRUBIN,TOTAL 1.7 mg/dL (0.2-1.0); CALCIUM 9.7 mg/dL (8.5-10.3); CREATININE 0.8 mg/dL (0.6-1.3); TOTAL PROTEIN 6.6 g/dL (6.4-8.9)
== END 2023-10-11 08:46 | disposition home or self-care (01) ==
LOC: LAB 08:45
PROVIDERS: ATTEND Nurse Practitioner
DX: R10.9 Unspecified abdominal pain (principal)
CPT/HCPCS: 36415; 80053

== ENCOUNTER 2023-11-16 08:00 | Outpatient (CLI) | payer MEDICAID | END 2023-11-16 23:59 | disposition home or self-care (01) | LOC: LAB.N 08:00 | PROVIDERS: ATTEND Physician Assistant Medical | DX: N30.00 Acute cystitis without hematuria (principal) | CPT/HCPCS: 87086 ==

== ENCOUNTER 2023-11-20 14:46 | Outpatient (CLI) | payer MEDICAID ==
--- NOTE | 2023-11-21 11:11 | DEXA Report ---
PROCEDURE: Dexa Spine and/or Hip INDICATIONS: POST MENOPAUSAL, OSTEOPENIA TECHNIQUE: Dual energy x-ray absorptiometry (DXA) was performed on a [employer] System. Regions measur ed are the AP Spine, femoral neck, and if needed forearm. COMPARISON: 08/15/2021 FINDINGS: Lumbar Spine: Bone Mineral Density: 0.901 g/cm/cm,T score: -2.3. Osteopenia, change from previous -6.2%, significa nt Left Femoral Neck: Bone Mineral Density: 0.754 g/cm/cm, T score: -2.0, osteopenia. Left Hip: Bone Mineral Density: 0.820 g/cm/cm,T score: -1.5, osteopenia. Change from previous -8.9%, significan t FRAX risk factors: None given 10 year risk of major osteoporotic fracture: 5.2% major osteoporotic fracture = hip, clinical vertebral, proximal humerus, distal forearm 10 year risk of hip fracture: 0.7% (T score greater or equal to -1.0: NORMAL) (T score from -1.1 to -2.4: OSTEOPENIA) (T score less than or equal to -2.5 to: OSTEOPOROSIS) Impression: By WHO criteria, this patient has low bone density (osteopenia). Interval statistical decrease in bone mineral density of the lumbar spine. Interval statistical decre ase in bone mineral density of the hip. Patients with diagnosis of osteoporosis or osteopenia should have regular bone mineral density assess ment. For those eligible for Medicare, routine testing is allowed once every 2 years. Testing frequ ency can be increased for patients who have rapidly progressing disease or for those who are receivin g medical therapy to restore bone mass. Reviewed by: Leeanne Arce MD on 11/21/2023 11:10 AM PDT Approved by: Leeanne Arce MD on 11/21/2023 11:10 AM PDT Station ID: [id number]
== END 2023-11-20 14:47 | disposition home or self-care (01) ==
LOC: DI 14:46
PROVIDERS: ATTEND Physician Assistant
DX: M85.80 Other specified disorders of bone density and structure, unspecified site (principal); Z78.0 Asymptomatic menopausal state